=== PATIENT | female | born 1975 | race Caucasian/White ===

== ENCOUNTER 2016-09-10 00:50 | Emergency (ER) | payer OTHER ==
[~2016-09-10] VITALS: Ht 160 cm; Wt 63.0 kg
[~2016-09-10 00:50] MED LIST: AMITRIPTYLINE PO; CLOT30CR24 TOP; CRANBERRY PILLS PO; HYDR-762 PO; IBUP-1542 PO; OMEP20CA16 PO; STOOL SOFTENER PO; SUMA100T4 PO; probiotics PO
[2016-09-10 00:56] VITALS: Ht 160 cm; Wt 63.0 kg
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
[2016-09-10] MEDS ORDERED: ALPR1TAB2 PO (01:58)
[2016-09-10] MEDS ORDERED: ALPRAZOLAM 1 MG TAB PO ONE (02:00)
== END 2016-09-10 02:03 | disposition home or self-care (01) ==
LOC: FTE 00:50
DX: F41.9 Anxiety disorder, unspecified (principal); E11.9 Type 2 diabetes mellitus without complications; F17.210 Nicotine dependence, cigarettes, uncomplicated; R00.2 Palpitations; Z85.3 Personal history of malignant neoplasm of breast
CPT/HCPCS: 93005; Z7610

== ENCOUNTER 2018-09-19 08:46 | Emergency (ER) | payer OTHER ==
[~2018-09-19] VITALS: Ht 160 cm; Wt 65.0 kg
[~2018-09-19 08:46] MED LIST changes: +ALPR1TAB2 PO
[2018-09-19 09:03] VITALS: Ht 160 cm; Wt 65.0 kg
[2018-09-19] MEDS ORDERED: ONDANSETRON 4 MG INJ IV STA (10:50)
[2018-09-19] MEDS ORDERED: SOD CHLORIDE 0.9% 1,000 ML IV STA (10:50)
[2018-09-19] MEDS ORDERED: KETOROLAC 30 MG INJ IV STA (10:50)
[2018-09-19] MEDS ORDERED: FAMOTIDINE 20 MG INJ IV STA (10:50)
[2018-09-19] MEDS ORDERED: ERGO500013 PO (12:22)
[2018-09-19] MEDS ORDERED: ATOR10TA65 PO (12:22)
[2018-09-19] MEDS ORDERED: GABA300C16 PO (12:23)
[2018-09-19] MEDS ORDERED: AMIT25TA9 PO (12:23)
[2018-09-19] MEDS ORDERED: TRAZ-149 PO (12:24)
[2018-09-19] MEDS ORDERED: SOD CHLORIDE 0.9% 100 ML ONE (13:55)
[2018-09-19] MEDS ORDERED: IOHEXOL 300MG/ML 150 ML BTL ONE (13:55)
[2018-09-19] MEDS ORDERED: DIPHENOXYLATE/ATROPINE TAB PO ONE (14:00)
[2018-09-19] MEDS ORDERED: DIPH1TAB PO (14:44)
[2018-09-19 15:07] VITALS: BP 116/76; PULSE 85; RESP 20
--- NOTE | 2018-09-20 06:45 | ERD ---
ER Documentation Chief Complaint Chief Complaint abdominal pain with n/v states vomited blood today TERESA Is a very pleasant 44-year-old female with history of fibromyalgia. The patient indicates that 2 days ago she was seen at another hospital and diagnosed with a urinary tract infection. However the patient states she has not experienced any frequency urgency or dysuria. She had initially seen that she was complaining of abdominal pain. She indicated the abdominal pain was in the epigastric region. It has been persistent for 2 days. This morning she stated the pain began to radiate to the left lower quadrant. She states she has had multiple episodes of nonbloody nonbilious emesis. She also indicates that she started Macrobid yesterday. This morning she awoke and had loose watery stools. The patient indicates that the pain in the left lower quadrant is a cramping-like sensation. The pain is 6 out of 10 in intensity. the patient also stated she had one episode of emesis just prior to arrival where she noticed pinkish tinge in the emesis. She was concerned that she could have vomited blood. She denies any blood in her stools. She does not smoke tobacco. She has had no recent weight loss. She denies any recent travel or prolonged immobilization. No history of alcohol abuse. ROS All systems reviewed and are negative except as per history of present illness. Medications Home Meds Active Scripts Diphenoxylate HCl/Atropine (Lomotil 2.5-0.025 mg Tablet) 1 Each Tablet, 1 TAB PO QID PRN for DIARRHEA, #10 TAB Prov:ZOYA BECERRA MD 09/19/18 Reported Medications Trazodone Hcl* (Desyrel*) 50 Mg Tab, 50 MG PO QHS PRN for NEEDED, #30 TAB 09/19/18 Amitriptyline Hcl* (Amitriptyline Hcl*) 25 Mg Tablet, 25 MG PO QHS, #30 TAB 09/19/18 Gabapentin* (Gabapentin*) 300 Mg Capsule, 300 MG PO BID, #60 CAP 09/19/18 Atorvastatin Calcium (Atorvastatin Calcium) 10 Mg Tablet, 10 MG PO QHS, #30 TAB 09/19/18 Ergocalciferol (Vitamin D2) (VITAMIN D2) 50,000 Unit Capsule, 06756 UNIT PO Q FRI, CAP 09/19/18 Discontinued Reported Medications [Stool Softener] No Conflict Check, PO 05/04/14 [Amitriptyline] No Conflict Check, PO 05/04/14 Sumatriptan Succinate* (Sumatriptan Succinate*) 100 Mg Tablet, 100 MG PO BID PRN for HEADACHE, TAB May repeat after 2 hours if needed; MAX 200 mg/24 hours 05/04/14 [Cranberry Pills] No Conflict Check, PO 05/04/14 [probiotics] No Conflict Check, PO 05/04/14 Omeprazole* (Omeprazole*) 20 Mg Capsule.dr, 20 MG PO DAILY 07/07/13 Discontinued Scripts Alprazolam* (Xanax*) 1 Mg Tab, 1 MG PO Q8H PRN for ANXIETY, #7 TAB Prov:RAY ALEXANDER NP 09/10/16 Clotrimazole* (Clotrimazole* AF) 1% - 30 Gm Cream.gm., 1 APPLIC TOP BID for 7 Days, TUB Prov:CHRISS CHISHOLM PA-C 01/31/16 Hydrocodone Bit-Acetaminophen* ([place]*) 10-325 Mg Tablet, 1 TAB PO DAILY PRN for PAIN, #10 TAB 0 Refills Prov:TORI TANNER PA-C 06/15/15 Ibuprofen* (Motrin*) 600 Mg Tab, 600 MG PO Q6, #20 TAB Prov:CHRISS CHISHOLM PA-C 11/16/14 Ibuprofen* (Motrin*) 600 Mg Tab, 600 MG PO Q6H PRN for PAIN AND OR ELEVATED TEMP, #30 Prov:RAY ALEXANDER NP 10/23/14 Allergies Allergies: Coded Allergies: acetaminophen (Unverified Allergy, Unknown, 09/19/18) codeine (Unverified Allergy, Unknown, 09/19/18) ibuprofen (Unverified Allergy, Unknown, 09/19/18) tramadol (Unverified Allergy, Unknown, 09/19/18) PMhx/Soc History of Surgery: No Anesthesia Reaction: No Hx Neurological Disorder: No Hx Respiratory Disorders: No Hx Cardiac Disorders: No Hx Psychiatric Problems: No Hx Miscellaneous Medical Probl: No Hx Alcohol Use: No Hx Substance Use: No Hx Tobacco Use: No Smoking Status: Never smoker Physical Exam Vitals Vital Signs Date Temp Pulse Resp B/P (MAP) Pulse Ox O2 O2 Flow FiO2 Time Delivery Rate 09/19/18 98.3 85 20 116/76 98 Room Air 15:07 (89) 09/19/18 98.3 74 20 110/66 98 Room Air 13:00 (81) 09/19/18 97.8 88 18 120/78 98 09:03 (92) Physical Exam Constitutional:Well-developed. Well-nourished. HEENT:Normocephalic. Atraumatic.Pupils were equal round reactive to light. Dry mucous membranes.No tonsillar exudates. Neck: No nuchal rigidity. No lymphadenopathy. No posterior cervical spine tenderness or step-offs. Respiratory: Not using accessory muscles of respiration.Lungs were clear to auscultation bilaterally. No rhonchi. No rales. No wheezing. Cardiovascular: Regular rate regular rhythm.No murmurs. No rubs were appreciated.S1, S2 normal. Distal pulses are palpable 2+ bilaterally. GI: Abdomen was soft. Left lower quadrant tenderness. Mild epigastric tenderness. Non Distended. No pulsatile abdominal masses or bruits. No rebound. No guarding. Bowel sounds were present and normal. Muscle skeletal: Full range of motion of both the upper and lower extremities bilaterally.Normal muscle tone.No assymetrical calf tenderness or swelling. Skin: No petechia, no purpura. No lesions on the palms or the soles of the feet. No maculopapular rash. NEURO: Patient was alert, awake, orientated x3.No facial droop. Gait observed and normal with no ataxia.Speech had regular rate and rhythm. No focal neurological deficits. Result Diagram: 09/19/18 1118 09/19/18 1118 Results 24 hrs Laboratory Tests Test 09/19/18 11:18 09/19/18 11:19 09/19/18 13:44 White Blood Count 5.8 10^3/ul Red Blood Count 4.53 10^6/ul Hemoglobin 11.9 g/dl Hematocrit 36.7 % Mean Corpuscular Volume 81.0 fl Mean Corpuscular Hemoglobin 26.3 pg Mean Corpuscular Hemoglobin Concent 32.4 g/dl Red Cell Distribution Width 13.9 % Platelet Count 352 10^3/UL Mean Platelet Volume 10.5 fl Immature Granulocytes % 0.200 % Neutrophils % 54.3 % Lymphocytes % 35.7 % Monocytes % 6.9 % Eosinophils % 2.4 % Basophils % 0.5 % Nucleated Red Blood Cells % 0.0 /100WBC Immature Granulocytes # 0.010 10^3/ul Neutrophils # 3.2 10^3/ul Lymphocytes # 2.1 10^3/ul Monocytes # 0.4 10^3/ul Eosinophils # 0.1 10^3/ul Basophils # 0.0 10^3/ul Nucleated Red Blood Cells # 0.0 10^3/ul Prothrombin Time 11.4 Sec Prothrombin Time Ratio 0.9 INR International Normalized Ratio 0.82 Activated Partial Thromboplast Time 28.4 Sec Urine Color YELLOW Urine Clarity SLIGHTLY CLOUDY Urine pH 8.0 Urine Specific [place] 1.012 Urine Ketones NEGATIVE mg/dL Urine Nitrite NEGATIVE mg/dL Urine Bilirubin NEGATIVE mg/dL Urine Urobilinogen NEGATIVE mg/dL Urine Leukocyte Esterase NEGATIVE Jina/ul Urine Microscopic RBC 1 /HPF Urine Microscopic WBC 1 /HPF Urine Squamous Epithelial Cells FEW /HPF Urine Bacteria FEW /HPF Urine Hemoglobin NEGATIVE mg/dL Urine Glucose NEGATIVE mg/dL Urine Total Protein 1+ mg/dl Sodium Level 140 mmol/L Potassium Level 3.6 mmol/L Chloride Level 102 mmol/L Carbon Dioxide Level 27 mmol/L Anion Gap 11 Blood Urea Nitrogen 17 mg/dl Creatinine 0.74 mg/dl Est Glomerular Filtrat Rate mL/min > 60 mL/min Glucose Level 101 mg/dl Calcium Level 9.9 mg/dl Total Bilirubin 0.3 mg/dl Direct Bilirubin 0.00 mg/dl Indirect Bilirubin 0.3 mg/dl Aspartate Amino Transf (AST/SGOT) 28 IU/L Alanine Aminotransferase (ALT/SGPT) 20 IU/L Alkaline Phosphatase 88 IU/L Troponin I < 0.012 ng/ml Total Protein 7.7 g/dl Albumin 4.2 g/dl Globulin 3.50 g/dl Albumin/Globulin Ratio 1.20 Amylase Level 176 U/L Lipase 299 U/L Serum HCG, Qualitative NEGATIVE POC Beta HCG, Qualitative NEGATIVE Current Medications Medications Dose Sig/Erika Start Time Status Last (Trade) Ordered Route PRN Stop Time Admin Dose Reason Admin Sodium 1,000 ml @ Q1H STAT 09/19/18 DC 09/19/18 Chloride 1,000 mls/hr IV 10:50 09/19/18 11:38 11:49 Ondansetron 4 mg ONCE STAT 09/19/18 DC 09/19/18 HCl (Zofran IV 10:50 5/6/19 11:31 Inj) 10:53 Famotidine 20 mg ONCE STAT 09/19/18 DC 09/19/18 (Pepcid Iv) IV 10:50 09/19/18 11:31 10:53 Ketorolac 30 mg ONCE STAT 09/19/18 DC 09/19/18 Tromethamine IV 10:50 09/19/18 11:33 (Toradol) 10:53 1 tab ONCE ONCE 09/19/18 DC 09/19/18 Diphenoxylate PO 14:00 09/19/18 14:23 HCl/ 14:01 Atropine (Lomotil) IV Flush 10 ml STK-MED 09/19/18 DC 09/19/18 (NS 10 ml) ONCE .ROUTE 13:55 09/19/18 13:59 13:56 Sodium 100 ml @ ud STK-MED 09/19/18 DC 09/19/18 Chloride ONCE .ROUTE 13:55 09/19/18 14:00 13:56 Iohexol 150 ml STK-MED 09/19/18 DC 09/19/18 (Omnipaque ONCE .ROUTE 13:55 09/19/18 14:00 300mg/ ml) 13:56 Procedures/MDM This patient presented to the emergency department with abdominal pain and was seen and evaluated by myself. My differential diagnosis included but was not limited to abdominal aortic aneurysm, appendicitis, pancreatitis, perforated peptic ulcer, perforated viscus, Boerhaaves syndrome or visceral pain such as diverticulitis, DKA, esophagitis, hepatitis or bowel obstruction. The patient was placed on a director of hotel operations, continuous pulse oximetry, and IV access was established by nursing staff. The patient was given intravenous fluids Zofran Pepcid. Obtained a 12-lead EKG tracing to the left ventricle microinfarction. 12 Lead EKG tracing ordered and reviewed by myself showed: Normal sinus rhythm of 74 bpm and no arrhythmia. MI interval normal. QRS duration normal. No ST segment elevation No ST segment depression. No changes consistent with acute ischemia. Patient no severe left leg abnormalities. The patient did not have a urinary tract infection. I obtained a CT scan of the patient's abdomen and there was no evidence of obstructive uropathy no diverticulosis or perforated viscus. Observation Note: Time: 4 hours Family Hx: No Hypertension Evaluation: Multiple exams showed improving symptoms and no evidence of intractable vomiting. I indicated to the patient that I felt her symptoms could be a result of a viral etiology and the diarrhea exacerbated by her antibiotics. Given that there is no evidence of urinary tract infection and the patient was asymptomatic with respect to symptoms of cystitis I did indicate to the patient that she could stop taking the Macrobid is she appears to have an adverse reaction. She was discharged home with Zofran. The patient was discharged home in fair condition. They were instructed to return to the emergency department at any time if there was any worsening of their condition. The patient stated they would follow up with their PCP in the next 24-48 hours to initiate a suitable medication regimen under the care of their PCP as well as to allow their PCP to monitor any drug reactions. The patient was discharged home with prescriptions after they gave informed consent to the new medication. They were also fully informed by myself on the adverse effects and adverse drug interactions in order to provide adequate safeguards to prevent possible adverse reactions to medications. Departure Diagnosis: Primary Impression: Nausea vomiting and diarrhea Condition: Fair Patient Instructions: Diarrhea, Viral (Child) (Adult) ZOYA BECERRA MD September 20, 2018 06:45
== END 2018-09-19 15:06 | disposition home or self-care (01) ==
LOC: EDBD 08:46 → E/R 08:46
DX: R11.2 Nausea with vomiting, unspecified (principal); R19.7 Diarrhea, unspecified; R10.9 Unspecified abdominal pain
CPT/HCPCS: 74177; 80053; 81001; 81025; 82150; 83690; 84484; 84703; 85025; 85610; 85730; 87086; 93005; 96361; 96374; 96375; J1885; J2405; J7030; Q9967; Z7502; Z7610